=== PATIENT | male | born 1965 | race Hispanic/Latino ===

== ENCOUNTER 2020-08-23 10:47 | Outpatient (CLI) | payer OTHER ==
--- NOTE | 2020-08-23 11:52 | XRay Report ---
LUMBOSACRAL SPINE 3 VIEWS INDICATION: Back pain. COMPARISON: None. IMPRESSION: Normal alignment. Mild degenerative disc disease is noted at L1-2 and L3-4. The remaini ng levels are unremarkable. No acute osseous or soft tissue abnormality. LEFT FOOT 2 VIEWS INDICATION: LEFT FOOT PAIN. COMPARISON: None. IMPRESSION: No acute osseous or soft tissue abnormality. A moderate hallux valgus deformity is id entified. 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 No significant joint pathology is appr eciated. Signer Name: Carlos Mccray Jr, MD Signed: 08/23/2020 11:48 AM Workstation Name: [id number]
== END 2020-08-23 10:48 | disposition home or self-care (01) ==
LOC: XRAY 10:47
PROVIDERS: ATTEND Internal Medicine
DX: M47.816 Spondylosis without myelopathy or radiculopathy, lumbar region (principal); M20.12 Hallux valgus (acquired), left foot; Z89.422 Acquired absence of other left toe(s)
CPT/HCPCS: 72100